=== PATIENT | female | born 1985 | race Caucasian/White ===

== ENCOUNTER → 2020-06-30 09:30 | Outpatient (BNVA) | payer OTHER, SELFPAY | PROVIDERS: Visit Provider Physician Assistant | DX: S69.92XA Unspecified injury of left wrist, hand and finger(s), initial encounter (principal); X58.XXXA Exposure to other specified factors, initial encounter | CPT/HCPCS: 73200; 99204 ==

== ENCOUNTER → 2020-07-07 10:15 | Outpatient (BNVA) | payer OTHER, SELFPAY | PROVIDERS: Visit Provider Physician Assistant | DX: S69.92XA Unspecified injury of left wrist, hand and finger(s), initial encounter (principal); W22.8XXA Striking against or struck by other objects, initial encounter | CPT/HCPCS: 99213 ==

== ENCOUNTER → 2020-07-09 10:46 | Outpatient (BNVA) | payer OTHER, SELFPAY | PROVIDERS: Visit Provider Physician Assistant Medical | DX: S69.92XA Unspecified injury of left wrist, hand and finger(s), initial encounter (principal); X58.XXXA Exposure to other specified factors, initial encounter | CPT/HCPCS: 99213 ==

== ENCOUNTER → 2020-07-14 13:33 | Outpatient (BNVA) | payer OTHER, SELFPAY | PROVIDERS: Visit Provider Physician Assistant | DX: S69.82XA Other specified injuries of left wrist, hand and finger(s), initial encounter (principal); W22.8XXA Striking against or struck by other objects, initial encounter; M79.645 Pain in left finger(s) | CPT/HCPCS: 99213 ==

== ENCOUNTER 2020-08-04 07:10 | Outpatient (REF) | payer OTHER, SELFPAY ==
--- NOTE | ~2020-08-04 | MR_ITS ---
EXAMINATION: MRI OF THE LEFT WRIST WITHOUT CONTRAST CLINICAL INFORMATION: Intractable pain in the radial wrist and thumb. Trauma on June 29. COMPARISON: None TECHNIQUE: Multiplanar MR imaging was obtained through the left wrist without contrast on a 1.5 Augustina magnet. FINDINGS: Ligaments/TFCC: Intact. Bones and articular cartilage: Intact. No fractures or contusions. Marrow signal is normal. Articular cartilage is well preserved. Joint fluid: No effusion or synovitis. Muscles and tendons: Intact. No tendon tears or tenosynovitis. Normal muscle signal. Nerves: Carpal tunnel and Guyon's canal are unremarkable. Superficial soft tissues: There is a multilocular cystic focus arising along the palmar aspect of the wrist just proximal to the pisiform, likely a small synovial cyst arising off the pisotriquetral recess. A 1.2 x 0.6 x 0.4 cm multilocular ganglion cyst arises at the palmar margin of the triscaphe joint and is situated at the margin of the carpal tunnel. MR/MR wrist LT wo con IMPRESSION: No acute abnormalities are identified in the left wrist to correlate with the patient's symptoms.
== END 2020-08-04 07:11 | disposition home or self-care (01) ==
LOC: HO.MRI 07:10
PROVIDERS: Visit Provider Internal Medicine
DX: M25.532 Pain in left wrist (principal); M79.645 Pain in left finger(s)
CPT/HCPCS: 73221